=== PATIENT | female | born 1960 | race Caucasian/White ===

== ENCOUNTER 2020-10-11 00:50 | Inpatient (IN) | payer OTHER ==
[~2020-10-11] VITALS: Ht 154.9 cm; Wt 65.3 kg
[2020-10-11] VITALS (7 sets, daily range): BP systolic 83–128; BP diastolic 49–69
--- NOTE | ~2020-10-11 | HC ---
[facility] [place] [address] CONSULTATION Name: SARA BELTRAN Room #: 207-P ADM IN M.R.#: [id number] Admission: 10/11/20 Attend Phys: Juany Brownlee Discharge: Date of : 58 Report #: [id number] THIS REPORT FOR: cc: [facility] - Clinic physician unknown [facility] - Clinic physician unknown Luke Kilgore MD ~ DATE OF SERVICE: 10/11/2020 HISTORY OF PRESENT ILLNESS: This is a 60-year-old female patient who was seen by me for seizure. The history is very poorly defined. I cannot reach anybody to get good history in this patient. The patient is not able to provide any reliable history. I reviewed the patient's records. Some records are from 1998, which has been ___. The other records are limited in this patient. The patient says that he has seizures. He was found on the floor and he thought he may have had a seizure, but he cannot even confirm that. He says he has a seizure disorder. He does not have the list of his medication, but lists medication at home indicates that he is on Keppra 1000 mg b.i.d., in addition to another 1500 mg at night, so looks like he takes 1000 in the morning and 1500 at night. He is also on Tegretol, which looks like he takes 400 mg, 200 mg and 400 mg. He is also on lacosamide, which he takes 100 mg at 8:00, 100 mg at 4:00 and 200 mg at night. I do not know who is managing these medications. I have repeatedly asked him if he has a neurologist and he did not give me an answer. I am not sure he has mental capability to understand those questions and answer appropriately. REVIEW OF SYSTEMS: A 14-point review of system was carried out. 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 That may be even congenital because the patient indicates that his weakness is much more prominent on the left side as compared to the right side since . A 14-point review of system otherwise it is limited because of the patient's mental capabilities and nobody else is here to provide the history. Apparently, he has a humeral fracture. He had an episode of syncope. He has anger management problem. Apparently, he has been on lithium and valproic acid which is allergic to. He is on multiple seizure medication, but I am not sure about the history of seizures. He denies any chest pain, respiratory difficulty, GI symptoms. He does not have any constitutional, dermatological, hematological, psychiatric, throat symptom associated with present symptomatology. PAST MEDICAL HISTORY: Positive for cerebral palsy as well as seizure. SOCIAL HISTORY: The patient apparently lives with a roommate. PHYSICAL EXAMINATION: Pretty limited. He cannot tell me what month it is. He does have speech. His memory and fund of knowledge is very poor, but I think [facility] [address] [facility] [place] [address] CONSULTATION Name: SARA BELTRAN Room #: 207-P [facility] IN M.R.#: [id number] Admission: 10/11/20 Attend Phys: Juany Brownlee Discharge: Date of : 58 Report #: [id number] that is baseline. Cranial nerve examination 2-12 was attempted, very difficult to carry out, especially something like visual hutson and good facial nerve or examination. I cannot carry out visual field at all. Neuromuscular examinations indicate he moves all 4 extremities. He is weak on the left side. He is deformed on the left side and he does appear to be somewhat hyperreflexic on the left side. His tone looks increased there. I cannot tell about cerebellar sign in this patient. I could not look at the patient's fundus. Cardiac examination is unremarkable. No respiratory difficulty was noted. Does not have any edema, cyanosis or jaundice. He does not have any thyroid mass or carotid bruit. Blood pressure is 109/57, respirations 20, pulse is 88, and temperature is 98.5. LABORATORY DATA: White count is 8.3. His sodium is 129. IMPRESSION: Difficult to tell what he has because of such poor history. It is difficult to tell what he had in the past, but he is predisposed to have seizures. He is on multiple seizure medications. Question need to be addressed if he had another seizure. Whether he needs something like vagus nerve stimulator or any more intervention. Before that we will get an EEG done. He does not look like his home medication was started. I have asked the nurses to find out what medication he was on. He needs to be started on that, especially his anticonvulsant. He said he fell and hit his head. I will get a C-spine CT, as I can. He cannot provide any history. Presently, I would like him to start on the anticonvulsant, but as an outpatient. The question need to be addressed whether he need so many anticonvulsants or not. Thank you very much for this referral. By: [id number] Luke Kilgore MD /nt
--- NOTE | ~2020-10-11 | EEG ---
[facility] [place] [address] ELECTROENCEPHALOGRAM Name: SARA BELTRAN Room #: 207-P ADM IN M.R.#: [id number] Admission: 10/11/20 Attend Phys: Juany Tolbert Discharge: Date of : 58 Report #: [id number] THIS REPORT FOR: //name// DATE OF SERVICE: 10/11/2020 This patient's EEG was done to evaluate the patient for seizure activity. Background activity goes up to about 8-9 Hz and 30 microvolts. Photic stimulation is unremarkable. The patient went to sleep that is associated with bilateral slowing and vertex sharp waves. Throughout the record, no active epileptiform activity was noticed. IMPRESSION: This patient's EEG demonstrates sporadic sharper activity that may represent seizure, but the finding need strong clinical correlation because it is subtle. Thank you very much for this referral. By: [id number] Luke Kilgore MD /nt
[~2020-10-11 00:50] MED LIST: CARBAMAZEPINE200 M2 PO; CELEXA 20 MG TA20 M1 PO; CLONAZEPAM 0.50.5 M1 PO; CLONAZEPAM PO; IBUPROFEN 200200 M1 PO; KEPPRA 500 MG500 M1 PO; KEPPRA250 MG PO; LEXAPRO 10 MG T10 M1 PO; LEXAPRO5 MG; LISINOPRIL1 GM; LISINOPRIL10 MG PO; NORCO 5-325 TA1 EACH PO; RISPERIDONE 00.25 MG; RISPERIDONE 1 MG1 MG PO; VITAMIN D1000 UNI1 PO; ZOCOR 10 MG TAB10 MG; ZOCOR 20 MG TAB20 M1 PO
[2020-10-11 01:37] LABS: BASOPHILS 0.3 % (0.0-2.0); EOSINOPHILS 0.1 % (0.0-3.0); HEMATOCRIT 32.1 % (37.0-47.0); HEMOGLOBIN 10.7 gm/dL (12.0-15.0); LYMPHOCYTES 8.8 % (24.0-44.0); MCH 33.3 pg (26.0-34.0); MCHC 33.5 g/dL (28.0-37.0); MCV 99.6 fL (80.0-100.0); MONOCYTES 6.6 % (1.0-8.0); PLATELET COUNT 233 thou/uL (150-400); POLYS 84.2 % (36.0-66.0); RBC 3.22 mil/uL (4.20-5.00); RDW 12.6 % (10.5-14.5); WBC 8.3 thou/uL (4.0-11.0)
[2020-10-11 01:39] LABS: URINE BILIRUBIN NEGATIVE (Negative); URINE BLOOD NEGATIVE (Negative); URINE CLARITY CLEAR; URINE COLOR YELLOW; URINE GLUCOSE-RANDOM* NEGATIVE (Negative); URINE KETONES NEGATIVE (Negative); URINE LEUKOCYTES-REFLEX NEGATIVE (Negative); URINE NITRITE-REFLEX NEGATIVE (Negative); URINE PROTEIN (DIPSTICK) NEGATIVE (Negative); URINE SPECIFIC GRAVITY 1.015 (1.005-1.035); URINE UROBILINOGEN 0.2 E.U./dl (0.2-1.0)
[2020-10-11 01:40] LABS: ANION GAP 9 mmol/L (7-16); BUN 10 mg/dL (7-18); CALCIUM 8.3 mg/dL (8.5-10.1); CHLORIDE 94 mmol/L (98-107); CO2 26 mmol/L (21-32); CREATININE 0.7 mg/dL (0.6-1.0); GLUCOSE 157 mg/dL (74-106); POTASSIUM 3.8 mmol/L (3.5-5.1); SODIUM 129 mmol/L (136-145)
[2020-10-11 01:50] LABS: ALBUMIN 3.3 g/dL (3.4-5.0); SGOT 15 U/L (15-37); SGPT 15 U/L (14-59); TOTAL BILIRUBIN 0.4 mg/dL (0.2-1.0); TOTAL PROTEIN 6.2 g/dL (6.4-8.2); TROPONIN-I <0.06 ng/mL (<0.06)
[2020-10-11] MEDS ORDERED: LORATIDINE 10 M10 M1 PO (02:36)
[2020-10-11] MEDS ORDERED: TAMSULOSIN HCL0.4 MG PO (02:37)
[2020-10-11] MEDS ORDERED: LEVETIRACETAM500 M1 PO (02:39)
[2020-10-11] MEDS ORDERED: KEPPRA 500 MG500 MG PO (02:39)
[2020-10-11] MEDS ORDERED: LOSARTAN POTAS100 MG PO (02:57)
[2020-10-11] MEDS ORDERED: INDERAL LA 80 M80 M1 PO (02:57)
[2020-10-11] MEDS ORDERED: KLONOPIN1 MG PO (03:13)
[2020-10-11] MEDS ORDERED: NUEDEXTA 20-101 EACH PO (03:13)
[2020-10-11] MEDS ORDERED: MINIPRESS1 MG PO (03:14)
[2020-10-11] MEDS ORDERED: VITAMIN D325 G1 PO (03:14)
[2020-10-11] MEDS ORDERED: GLYCOPYRROLATE PO (03:14)
[2020-10-11] MEDS ORDERED: LIPITOR 40 MG T40 M1 PO (03:15)
[2020-10-11] MEDS ORDERED: TEGRETOL200 MG PO ×2 (03:15)
[2020-10-11] MEDS ORDERED: VIMPAT100 MG PO ×2 (03:16)
[2020-10-11] MEDS ORDERED: VIMPAT200 MG PO (03:16)
[2020-10-11] MEDS ORDERED: ALENDRONATE SOD70 MG PO (03:16)
[2020-10-11] MEDS ORDERED: SENNA8.6 MG PO (03:17)
[2020-10-11] MEDS ORDERED: DAILY VITE1 EACH PO (03:17)
[2020-10-11] MEDS ORDERED: LEVOTHYROXINE88 MC1 PO (03:18)
[2020-10-11] MEDS ORDERED: FUROSEMIDE 20 M20 MG PO (03:18)
[2020-10-11] MEDS ORDERED: FENOFIBRATE200 MG PO (03:18)
[2020-10-11] MEDS ORDERED: STOOL SOFTENER1 EAC2 PO (03:18)
[2020-10-11] MEDS ORDERED: MILK OF MA400 MG/5 M PO (03:19)
[2020-10-11] MEDS ORDERED: MUPIROCIN15 GM TOP (04:24)
[2020-10-11] MEDS ORDERED: HYDROCORTISONE30 G4 TOP (04:24)
[2020-10-11] MEDS ORDERED: CONSTULOSE10 GM/152 PO (06:20)
[2020-10-11] MEDS ORDERED: MELOXICAM15 MG PO (06:21)
[2020-10-11] MEDS ORDERED: ARTIFICIAL TEAR1510 OPHTHALMIC (06:22)
[2020-10-11] MEDS ORDERED: TRIPLE ANTIBIO1 EAC1 TOP (06:31)
[2020-10-11] MEDS ORDERED: TYLENOL325 MG PO (06:32)
--- NOTE | 2020-10-11 06:57 | EKG ---
[address] [place] [address] ELECTROCARDIOGRAM REPORT Name: SARA BELTRAN Room #: 207-P ADM IN M.R.#: [id number] Admission: 10/11/20 Attend Phys: Francois Perdomo MD Discharge: Date of : 58 Report #: [id number] [facility] ED Test Date: 2020-10-11 Test Time: 01:04:08 Pat Name: SARA BELTRAN Department: Room: 207 Gender: F Ammonia Print Operator: DRISSRancho : 1960 Requested By: Keanu Blevins Order Number: [id number] : Hung Hanks Measurements Intervals [place] Rate: 56 P: 55 WA: 199 QRS: 41 QRSD: 111 T: 76 QT: 456 QTc: 441 Interpretive Statements Sinus rhythm Probable left atrial enlargement Compared to ECG 05/18/2014 22:24:58 First degree AV block no longer present Electronically Signed On 10-11-2020 6:57:26 CDT by Hung Hanks [email or web address] <ELECTRONICALLY SIGNED> By: Hung Hanks MD, [facility] 10/11/20 0657 0104 3 Hung Hanks MD, FACC /EPI
[2020-10-11 09:05] LABS: CHOLESTEROL 210 mg/dL (<200); HDL CHOLESTEROL 87 mg/dL (>40); LDL CHOLESTEROL 115 mg/dL (<100); TC:HDL 2.4 Ratio (Not establshd); TRIGLYCERIDE 42 mg/dL (<150); VLDL 8 mg/dL (<40)
[2020-10-11 09:31] LABS: FOLIC ACID 4.5 ng/mL (8.6-58.9)
--- NOTE | 2020-10-11 11:20 | NUR ---
met with patient who admits post fall at [facility]. Patient reports she fell at [facility]. She uses a walker for ambulation. Left message with guardian Minday and left message at [facility] to discuss plan of care. Rec correct medication list from [facility]. casemgt following.
--- NOTE | 2020-10-11 11:39 | 2DMMODE ---
[facility] [address] [place] [address] 2 D/M-MODE ECHOCARDIOGRAM Name: SARA BELTRAN Room #: 207-P ADM IN M.R.#: [id number] Admission: 10/11/20 Attend Phys: Juany Brownlee Discharge: Date of : 58 Report #: [id number] THIS REPORT FOR: cc: [facility] - Clinic physician unknown [facility] - Clinic physician unknown Momo Wang MD [facility] ~ APPROVED REPORT Study performed: 10/11/2020 10:19:53 EXAM: Comprehensive 2D, Doppler, and color-flow Echocardiogram Patient Location: Bedside Room #: 207 Status: routine BSA: 1.62 HR: 54 bpm BP: 109/57 mmHg Rhythm: NSR Other Information Study Quality: Adequate Technically limited study due to upper torso harness. Indications Syncope. 2D Dimensions RVDd: 29.50 mm IVSd: 9.85 (7-11mm) LVOT Diam: 18.90 (18-24mm) LVDd: 43.06 mm PWd: 9.64 (7-11mm) LVDs: 22.86 (25-40mm) Left Atrium: 31.45 (27-40mm) Aortic Root: 31.57 mm Volumes Left Atrial Volume (Systole) Single Plane 4CH: 37.43 mL Single Plane 2CH: 36.36 mL LA ESV Index: 25.00 mL/m2 Aortic Valve AoV Peak Joe.: 1.60 m/s AO Peak Gr.: 10.52 mmHg LVOT Max P.12 mmHg [facility] [email or web address] [address] 2 D/M-MODE ECHOCARDIOGRAM Name: RUBYJUNGMelyssaMARITZA Room #: 207-[facility] IN M.R.#: [id number] Admission: 10/11/20 Attend Phys: Juany Hughes Discharge: Date of : 58 Report #: [id number] LVOT Max V: 1.13 m/s MOI Vmax: 1.98 cm2 Mitral Valve E/A Ratio: 0.8 MV Decel. Time: 261.41 ms MV E Max Joe.: 0.76 m/s MV A Joe.: 1.00 m/s MV PHT: 75.81 ms IVRT: 78.43 ms Pulmonary Valve PV Peak Joe.: 0.86 m/s PV Peak Gr.: 2.94 mmHg Tricuspid Valve TR Peak Joe.: 2.10 m/s RAP Estimate: 5.00 mmHg TR Peak Gr.: 18.00 mmHg PA Pressure: 23.00 mmHg Left Ventricle The left ventricle is normal size. There is normal LV segmental wall motion. There is normal left ventricular wall thickness. Left ventricular systolic function is normal. LVEF is 60-65%. Mild diastolic dysfunction Right Ventricle The right ventricle is normal size. The right ventricular systolic function is normal. Atria The left atrium size is normal. The right atrium size is normal. Aortic Valve The aortic valve is trileaflet, moderately calcified. No aortic regurgitation is present. There is no aortic valvular stenosis. Mitral Valve Mild mitral annular calcification. There is no mitral valve regurgitation noted. No evidence of mitral valve stenosis. Tricuspid Valve The tricuspid valve is normal in structure. Trace tricuspid regurgitation. Estimated PAP is 20-25mmHg. [facility] [address] [address] 2 D/M-MODE ECHOCARDIOGRAM Name: SARA BELTRAN Room #: [facility]- ADM IN M.R.#: [id number] Admission: 10/11/20 Attend Phys: Juany Hughes Discharge: Date of : 58 Report #: [id number] Pulmonic Valve The pulmonary valve is normal in structure. Mild pulmonic regurgitation. Great Vessels The aortic root is normal in size. The ascending aorta is normal in size. IVC is normal in size and collapses >50% with inspiration. Pericardium There is no pericardial effusion. <Conclusion> Left ventricular systolic function is normal. There is normal LV segmental wall motion. LVEF is 60-65%. Mild diastolic dysfunction The aortic valve is trileaflet, moderately calcified. No aortic valvular stenosis. Mild mitral annular calcification. No mitral valve regurgitation. Trace tricuspid regurgitation. Estimated pulmonary artery pressure of 20-25mmHg. There is no pericardial effusion. <ELECTRONICALLY SIGNED> By: Momo Wang MD, [facility] 10/11/20 6701 [id number] 113 Momo Wang MD, [facility] /INF
[2020-10-11] MEDS ORDERED: ZOCOR 20 MG TAB20 M1 PO (12:18)
[2020-10-11] MEDS ORDERED: CLONAZEPAM 0.50.5 M1 PO (12:22)
[2020-10-11] MEDS ORDERED: RISPERDAL2 MG PO (12:30)
[2020-10-11] MEDS ORDERED: BENZTROPINE MES1 MG PO (12:31)
[2020-10-11] MEDS ORDERED: LEXAPRO 10 MG T10 M1 PO (12:32)
[2020-10-11] MEDS ORDERED: VITAMIN B-121000 MC2 SUBLING (12:33)
--- NOTE | 2020-10-11 16:33 | NUR ---
FAXED CLINICAL UPDATE TO [facility] WHERE PT RESIDES RECEIVED CONFIRMATION.
--- NOTE | 2020-10-11 18:44 | NUR ---
TO UNIT FROM Arabella PATEL THIS A.M. ORIENTED TO UNIT. SR PER TELE. RIGHT ARM IN SLING; LEFT ARM CONTRACTED. FALL PRECAUTIONS IN PLACE.
[2020-10-12 04:00] VITALS: BP 124/77
[2020-10-12 05:09] LABS: CALCIUM 7.8 mg/dL (8.5-10.1); CREATININE 0.5 mg/dL (0.6-1.0); MAGNESIUM 1.8 mg/dL (1.8-2.4); POTASSIUM 3.8 mmol/L (3.5-5.1)
[2020-10-12 05:31] LABS: BASOPHILS 0.8 % (0.0-2.0); EOSINOPHILS 1.9 % (0.0-3.0); HEMATOCRIT 26.6 % (37.0-47.0); HEMOGLOBIN 9.1 gm/dL (12.0-15.0); LYMPHOCYTES 29.3 % (24.0-44.0); MCH 34.1 pg (26.0-34.0); MCHC 34.1 g/dL (28.0-37.0); PLATELET COUNT 212 thou/uL (150-400); RBC 2.66 mil/uL (4.20-5.00); RDW 12.9 % (10.5-14.5); WBC 5.3 thou/uL (4.0-11.0)
--- NOTE | 2020-10-12 06:37 | NUR ---
RECEIVED OT EVAL AND TREAT ORDERS. PER CHART REVIEW, PT. HAS R HUMERUS FRACTURE POST FALL. HAS ORTHOPEDIC SURGERY CONSULT IN. WILL WAIT TO EVALUATE UNTIL CONSULT IS DONE. WILL CHECK BACK LATER TODAY.
[2020-10-12 07:15] VITALS: BP 139/67
--- NOTE | 2020-10-12 08:04 | NUR ---
ASSESSMENTS CHARTED, MEDS CHARTED GIVEN. PT RESTING IN BED WITH RIGHT ARM IMMOBILIZER IN PLACE DURING SHIFT. NPO FOR POSSIBLE PROCEDURE TODAY. USING BEDPAN DUE TO IMMOBILIZER ON RIGHT ARM AND LEFT ARM CONTRACTED. PATIENT LIVES IN A [facility]. FALL PRECAUTIONS IN PLACE DURING SHIFT.
[2020-10-12 08:43] LABS: % SATURATION 32 % (20-39); IRON 48 ug/dL (50-170); TIBC 148 ug/dL (250-450)
--- NOTE | 2020-10-12 10:17 | NUR ---
EDU PATIENTS AUTHORIZED CONTACT CALLED FOR UPDATE. PROVIDED INFORMATION FOR KIRSTIN CHENG WHO IS PATIENTS PRODUCTION SUPERVISOR TRAINEE AT [facility]. AUTHORIZED FOR UPDATES TO BE GIVEN TO LAT[facility]. SHE WAS MADE THE DESIGNATED VISITOR. PATIENT WAITING FOR OTHRO DOCTOR TO ROUND FAR PLAN OF CARE.
[2020-10-12 11:15] VITALS: BP 139/67
[2020-10-12 15:30] VITALS: BP 148/68
--- NOTE | 2020-10-12 16:34 | NUR ---
SPOKE WITH DR. FRANCO. OKAY FOR PATIENT TO HAVE DIET THIS EVENING AND THEN MAKE NPO AT MIDNIGHT FOR POTENTIAL SURGICAL INTERVENTION TOMORROW.
[2020-10-12 20:15] VITALS: BP 123/58
[2020-10-13 04:45] VITALS: BP 124/89
[2020-10-13 05:42] LABS: HEMATOCRIT 27.5 % (37.0-47.0); HEMOGLOBIN 9.2 gm/dL (12.0-15.0); MCH 33.7 pg (26.0-34.0); MCHC 33.5 g/dL (28.0-37.0); MCV 100.6 fL (80.0-100.0); RBC 2.74 mil/uL (4.20-5.00)
[2020-10-13 07:46] VITALS: BP 116/66
--- NOTE | 2020-10-13 08:30 | NUR ---
chart review, possible ortho surgery today. cm visited with pt at bedside, cm cont to wear face mask and shield during visit. she pleasant, soft spoken, answered question with verbal responses. call light in reach end of visit. will possible need rehab before going back to longterm. will cont following as needed for dc needs.
[2020-10-13 11:53] VITALS: BP 134/57
--- NOTE | 2020-10-13 13:06 | NUR ---
ORDERS RECEIVED, CHART REVIEWED. PER ORTHO CONSULT, PT TO HAVE ORIF OF R HUMERAL FX TODAY, 10/13. WILL NEED NEW ORDERS TO INITIATE OT EVAL POST-OP.
--- NOTE | 2020-10-13 19:23 | NUR ---
ASSUMED CARE OF PT AT SHIFT CHANGE. ASSESSMENTS CHARTED. MEDS GIVEN PER SEP. PT A&OX2-3. C/O PAIN, BUT DECLINED PAIN MEDS. PT NPO. TAKEN TO OR AT 1330 FOR REPAIR OF R HUMERUS. RETURNED TO UNIT AT 1820. DINNER TRAY WAS DELIVERED. PT CAREGIVER FROM [facility] WAS AT BEDSIDE FEEDING PT. REPORTED OFF TO NIGHT NURSE.
[2020-10-13 20:15] VITALS: BP 168/65
[2020-10-13 23:08] VITALS: BP 146/75
--- NOTE | 2020-10-14 04:08 | NUR ---
RESTED QUIETLY MOST OF SHIFT. ATE DINNER WELL WITH ASSISTANCE. PAIN MEDICATION GIVEN NEEDED WITH NOTED RELIEF. ICE TO RIGHT ARM NEEDED. ASSITS TO TURN FOR BEDPAN NEEDED. REMAINS ORIENTED TO PERSON, PLACE AND SITUATION. WORKING ON GOALS AND PLAN OF CARE FOR NOC. ASSIT TO REPOSITION NEEDED. CONTINUE TO ASSES CLOSELY.
[2020-10-14 04:45] VITALS: BP 143/60
[2020-10-14 05:03] LABS: HEMATOCRIT 25.3 % (37.0-47.0); HEMOGLOBIN 8.6 gm/dL (12.0-15.0); MCH 33.9 pg (26.0-34.0); MCV 99.7 fL (80.0-100.0); RBC 2.54 mil/uL (4.20-5.00); RDW 12.8 % (10.5-14.5)
[2020-10-14 08:00] VITALS: BP 121/64
--- NOTE | 2020-10-14 08:40 | NUR ---
discussed with hospitalist, possible dc today or tomorrow and going to require skilled rehab before going back to [facility]. cm visited with pt at bedside, she requested i talk with sterling and [facility] " don't know where to go"/mei. cm called [facility]ling, unable to visit and will call cm back.
[2020-10-14 12:00] VITALS: BP 130/65
--- NOTE | 2020-10-14 14:28 | NUR ---
FAXED REFERRAL WITH NEGATIVE COVID RESULT (10/12/20) TO [facility] AND [facility]. SPOKE TO MARKEL/TAYO OF [facility] THAT PATIENT'S PARENTS RESIDE THERE. MARKEL STATED THEY WEREN'T ACCEPTING ANY NEW PATIENT'S WITH [employer] INSURANCE BUT WOULD CONSIDER AND GET BACK TO ME WITH DETERMINATION. PATIENT'S GOAL IS TO RETURN TO [facility] AFTER REHAB IN A SKILLED FACILITY. WILL CONFIRM FACILITIES RECEIVED AND BED AVAILABILIY. [facility] P [phone]; FAX [phone] [facility] P [phone]; FAX [phone] [facility] FAX [phone]
[2020-10-14 16:00] VITALS: BP 122/70
[2020-10-14 20:00] VITALS: BP 131/72
[2020-10-15] VITALS (8 sets, daily range): BP systolic 106–146; BP diastolic 56–75
[2020-10-15 03:21] LABS: HEMATOCRIT 23.4 % (37.0-47.0); MCH 34.1 pg (26.0-34.0); MCV 100.3 fL (80.0-100.0); RBC 2.33 mil/uL (4.20-5.00); RDW 13.1 % (10.5-14.5); WBC 7.3 thou/uL (4.0-11.0)
--- NOTE | 2020-10-15 03:40 | NUR ---
PT IS ALERT AND ORIENTED X4. COMPLAINS OF RIGHT SHOULDER PAIN. PAIN MEDS GIVEN FOR COMFORT. SEE MAR FOR TIME OF ADMINISTRATION. RIGHT ARM IN A SLING . DRESSING DRY AND INTACT. VOIDS PER BEDPAN. ABDOMEN IS ROUND . BOWEL SOUNDS ACTIVE X4. CALL LIGHT WITHIN REACH IF NEEDS ASSISTANCE PER NURSING STAFF. SLEEPING AT THIS TIME.
--- NOTE | 2020-10-15 18:40 | NUR ---
PT CARE ASSUMED AT 0700. ASSESSMENTS CHARTED. MEDICATIONS CHARTED. AARON IV. SINUS RHYTHM. BEDPAN; OCCULT STOOL NEEDED. RT ARM IN A SLING. ACHS; FEEDER.
--- NOTE | 2020-10-16 04:17 | NUR ---
PT IS ALERT AND ORIENTED X4. LUNGS ARE CLEAR. BOWEL SOUNDS ACTIVE X4. RIGHT ARM IS IN A SLING. PAIN MEDS GIVEN SEE MAR FOR TIME OF ADMINISTRATION. PT SLEEPING. VOIDS PER BEDPAN.NO CONCERNS OR ISSUES NOTED CALL LIGHT WITHIN REACH IF NEEDS ASSISTANCE FROM NURSING STAFF.
[2020-10-16 04:54] VITALS: BP 112/77
[2020-10-16 07:34] VITALS: BP 120/74
[2020-10-16 11:04] VITALS: BP 118/66
[2020-10-16 15:08] VITALS: BP 143/77
--- NOTE | 2020-10-16 15:18 | NUR ---
ALERT AND ORIENTED. MENTALLY CHALLENGED. MAKES NEEDS KNOWN. MEDICATED FOR RIGHT ARM PAIN ORDERED. BACK AND FORTH FROM THE BED TO THE CHAIR. VOIDING PER BEDPAN, ONE INCONTINENCE. NEED STOOL FOR OCCULT BLOOD. SR PER TELE. FALL PRECAUTIONS IN PLACE.
[2020-10-16 20:15] VITALS: BP 115/91
[2020-10-17] VITALS (7 sets, daily range): BP systolic 96–173; BP diastolic 53–89
--- NOTE | 2020-10-17 08:00 | NUR ---
pt alert to self, uses call light appropriatly for assist, mentally challenged and forgetful, prn pain meds given as needed for r arm pain, vss, using bedpan to void, needed frequent repositioning, will con't to monitor per ppoc.
--- NOTE | 2020-10-17 12:58 | NUR ---
spoke with [facility] they are in process of auth fpr post acute care.
--- NOTE | 2020-10-17 15:07 | NUR ---
FAXED CLINICAL UPDATE TO [facility] TO SUBMIT FOR AUTH RECEIVED CONFIRMATION.
--- NOTE | 2020-10-17 15:12 | NUR ---
PT ALERT AND ORIENTED TO SELF. VSS. PRN PAIN MED GIVEN WITH PARTIAL RELIEF. UP IN THE CHAIR THIS SHIFT. NO CONCERNS AT THIS TIME. PT PROGRESSING WELL TOWARDS DISCHARGE GOAL.
--- NOTE | 2020-10-17 16:54 | O ---
[address] [address] OPERATIVE REPORT Name: SARA BELTRAN Room #: 207-P ADM IN M.R.#: [id number] Admission: 10/11/20 Attend Phys: Juany Brownlee Discharge: Date of : 58 Report #: [id number] THIS REPORT FOR: cc: [facility] - [facility] physician unknown [facility] - Clinic physician unknown Young Bustos MD ~ DATE OF SERVICE: 10/13/2020 SERVICE: Orthopedics. FACILITY: [facility]. SURGEON: Young Bustos MD CELERY PACKER: Bina Phillips NP INDICATION FOR CELERY PACKER: Extremity positioning, suture management, assistance with provisional and definitive fixation exposure and closure. PREOPERATIVE DIAGNOSES: 1. Status post fall. 2. Comminuted displaced 3-part right proximal humerus fracture. POSTOPERATIVE DIAGNOSES: 1. Status post fall. 2. Comminuted displaced 3-part right proximal humerus fracture. PROCEDURES: 1. Open reduction and internal fixation, right, 3-part proximal humerus fracture. 2. Open biceps tenodesis, right shoulder. COMPLICATIONS: None. DRAINS: None. SPECIMENS: None. ANESTHESIA: General. ESTIMATED BLOOD LOSS: 30 mL. FINDINGS: 1. Displaced malangulated fracture fixed with [employer]s 3-hole proximal locking plate. [address] [address] OPERATIVE REPORT Name: SARA BELTRAN Room #: 207-P [facility] IN [facility]#: [id number] Admission: 10/11/20 Attend Phys: Juany Brownlee Discharge: Date of : 58 Report #: [id number] 2. Involvement of the biceps tendon, necessitated biceps tenodesis. HISTORY: The patient rolls a 60-year-old right-hand dominant female who sustained a fall and was admitted to the hospital with a displaced proximal humerus fracture. Based on her overall health condition with her left side being contracted, she is very dependent on her right arm and she also uses her arm in order to mobilize safely with a walker. The fracture pattern was such that she was indicated for surgical treatment after we considered all risks, benefits, alternatives and indications. I discussed this with her as well as her guardian. We together elected to proceed with surgery. Risks, benefits, alternatives, and indications were discussed. Risks include but not limited to pain, bleeding, infection, injury nerves or blood vessels, malunion, nonunion, need for further surgery as well as complications related to anesthesia. Despite the risks, they wished to proceed. PROCEDURE IN DETAIL: After right upper extremity was correctly identified as the operative extremity, the patient was taken to the operating room where general anesthesia was induced without complication. She was padded appropriately. Prophylactic antibiotics were administered at appropriate time. She was seated in the beach chair position with the right side exposed. Right upper extremity was then prepped and draped in standard sterile fashion. Timeout procedure performed. Standard deltopectoral approach was made to the right humerus and then the clavipectoral fascia was identified and was incised. The coracobrachialis was retracted medially. The deltoid was retracted and the subdeltoid adhesions were released. There was bursitis present. The rotator cuff was still fixed to the greater tuberosity. The subscapularis was visualized, then a traction stitch was placed here. The biggest issue was that the greater tuberosity was avulsed and displaced posteriorly and then the humeral head was rotated posteriorly about 100 degrees off axis, so she was articulating her glenoid essentially with the anterior aspect of the humerus. So, we opened up the fracture, evacuated the hematoma; there was a cavity present within the bone and ultimately used 5 mL of demineralized bone matrix putty to place in this defect. Manipulation was performed and then I was able to place 2 traction stitches in the posterior rotator cuff, which allowed good advancement of the posterior cuff and then we proceeded with a provisional fixation. I selected a 3-hole plate. I did do a slight release of the deltoid insertion distally. 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 This allowed for much better [address] [address] OPERATIVE REPORT Name: RUBYSARA Room #: 207-P [facility] IN M.R.#: [id number] Admission: 10/11/20 Attend Phys: Juany Brownlee Discharge: Date of : 58 Report #: [id number] visualization and improved mobility and allowed the plate to actually sit better. She has a slightly atypical anatomy of her greater tuberosity adjacent to the bicipital groove. The plate again was provisionally fixed to the shaft. We brought x-ray in and checked on several planes of x-ray and I was happy with the position. I took care to ensure that the plate was not too proximally and then used nonlocking screws to compress the plate to the shaft distally and then we fixed the head and tuberosity components back to the plate shaft construct. I passed the sutures from the rotator cuff through the plate and with x-ray checked the reduction by pulling the sutures and then used a Frausto to elevate the humeral head to eliminate any varus malpositioning. The posterior cuff sutures were tied and this provided good approximation of the posterior cuff and greater tuberosity adjacent to the plate and then the demineralized bone matrix was injected into the metaphyseal cavity at the head and neck junction and then I pulled the subscapularis lesser tuberosity segment back down over the front and this then allowed for a near anatomic reduction and good alignment. The sutures were tied as well. We proceeded with screw fixation in the proximal segment. We fixed the initial first 3 screws and then brought C-arm in to assess, make sure that the reduction and alignment looked appropriate and it did, so we placed the final screws into position, used the C-arm throughout. The shoulder was then evaluated under live C-arm with the approach withdrawal technique to confirm that all the screws were in fact within the humerus and there was nothing penetrating the articular surface of the posterior aspect of the humerus. Final x-rays were taken. The wound was copiously irrigated. I then used a #1 Ethibond suture with 2 [id number] sutures to tenodese the biceps tendon to the upper border of the pectoralis and then resected the tendon stump. Wound was again irrigated. The deltopectoral layer was closed over a gram of vancomycin powder with 0 Vicryl suture in [id number]-su-fstba fashion. The skin was closed with 2-0 Vicryl followed by running subcuticular 3-0 Monocryl and Dermabond. Sterile dressing was applied. The patient was awakened from anesthesia and taken to recovery room in stable condition. Postoperative protocol will be for nonweightbearing for 6 weeks. We will start range of motion 0-30 degrees and forward flexion 0-90 degrees. These will be active assist range of motion and she will begin pendulums and then hand, wrist and elbow early range of motion with no restrictions in that category. <ELECTRONICALLY SIGNED> By: Young Bustos MD 10/17/20 1654 [id number] Young Bustos MD /nt
--- NOTE | 2020-10-18 02:46 | NUR ---
UP IN CHAIR AT START OF SHIFT AND ASSISTED BACK TO BED WITH ASSIST OF ONE. TURNS SELF IN BED. ASSISTS TO VOID NEEDE. WORKING ON GOALS AND PLAN OF CARE FOR NOC. PAIN MEDICATION GIVEN NEEDED WITH NOTED RELIEF. CALLS OUT APPROPRIATLY. CONTINUE TO ASSES CLOSELY.
[2020-10-18 04:45] VITALS: BP 133/82
[2020-10-18 07:47] VITALS: BP 127/68
--- NOTE | 2020-10-18 09:30 | NUR ---
PATIENT ALERT AND ORIENTED. AMBULATED TO CHAIR THIS AM. SAT UP FOR BREAKFAST. NEEDS ASSIST WITH FEEDING. ATE A GOOD BREAKFAST. CURRENTLY WORKING WITH THERPAY. NEEDS DISCHARGE TO SKILLED FACILITY FOR REHAB PURPOSES. ALL FALL PRECAUTIONS IN PLACE.
[2020-10-18 11:23] VITALS: BP 127/68
[2020-10-18 11:27] VITALS: BP 128/69
--- NOTE | 2020-10-18 14:10 | NUR ---
Nutrition: pt admitted with right humerus fracture, S/P ORIF. Seen due to LOS. Pt eating 70-100% of meals on regular diet. On folic acid supplementation for deficiency. Weight up 4# from initial admit weight. Plan D/C to SNF. Low risk.
--- NOTE | 2020-10-18 14:56 | NUR ---
Discussion of patient at team rounds. Phys reports can likely dc home with HH care. Sp with Cha RN [phone] and faxed clinical update. She reviewed and reports patient can return to [facility] home. No preference for home health agency. They do not have staff today to accomadate patient plan dc in am. Sp with Neli, Guardian of patient who is agreeable to plan and no preference for home health agency. Verified address. PCP Dr Krishan Kirk. Ph number for home health to call is [facility] [phone].
[2020-10-18 15:44] VITALS: BP 114/68
--- NOTE | 2020-10-18 16:28 | NUR ---
FAXED REFERRAL TO [facility] HH RECEIVED CONFIRMATION SPOKE WITH ROSEANN IN INTAKE THEY HAVE NOT REVIEWED REFERRAL YET. PT TO DC TOMORROW 10/19.
[2020-10-18 19:55] VITALS: BP 121/66
--- NOTE | 2020-10-19 03:03 | NUR ---
SLEPT MOST OF SHIFT. RESTING QUIETLY WITHOUT PRESENT COMPLAINTS. WORKING ON GOALS AND PLAN OF CARE FOR NOC. PROGRESSING SLOWLY TOWARDS DISCHARGE TO HALF-WAY TODAY. PAIN MEDICATION NEEDED WITH NOTED RELIEF. CONTINUE TO ASSES CLOSELY.
[2020-10-19 04:45] VITALS: BP 131/62
[2020-10-19 07:16] VITALS: BP 125/75
[2020-10-19] MEDS ORDERED: RISPERDAL2 MG PO (10:38)
[2020-10-19 10:51] VITALS: BP 127/68
[2020-10-19 11:00] VITALS: BP 117/58
--- NOTE | 2020-10-19 11:48 | NUR ---
PATIENT UP TO CHAIR THIS AM. STATES SHE IS FEELING GOOD AND EXCITED TO GO HOME TO SEE HER ROOMMATES. RIGHT ARM IN SLING. WORKED WITH THERAPY. WAITING FOR DISCHARGE TO FINALIZE AND TRANSPORT ARRANGED TO [facility].
[2020-10-19] MEDS ORDERED: BENZTROPINE MES1 MG PO (11:52)
[2020-10-19] MEDS ORDERED: LEVETIRACETAM500 M1 PO (11:52)
[2020-10-19] MEDS ORDERED: MILK OF MA400 MG/5 M PO (11:52)
[2020-10-19] MEDS ORDERED: KEPPRA 500 MG500 MG PO (11:52)
[2020-10-19] MEDS ORDERED: STOOL SOFTENER1 EAC2 PO (11:52)
[2020-10-19] MEDS ORDERED: SENNA8.6 MG PO (11:52)
[2020-10-19] MEDS ORDERED: VITAMIN D325 G1 PO (11:52)
[2020-10-19] MEDS ORDERED: VITAMIN B-121000 MC2 SUBLING (11:52)
[2020-10-19] MEDS ORDERED: DAILY VITE1 EACH PO (11:52)
[2020-10-19] MEDS ORDERED: TYLENOL325 MG PO (11:52)
[2020-10-19] MEDS ORDERED: TEGRETOL200 MG PO (11:52)
[2020-10-19] MEDS ORDERED: LEXAPRO 10 MG T10 M1 PO (11:52)
[2020-10-19] MEDS ORDERED: ARTIFICIAL TEAR1510 OPHTHALMIC (11:52)
[2020-10-19] MEDS ORDERED: ZOCOR 20 MG TAB20 M1 PO (11:52)
[2020-10-19 13:57] VITALS: BP 127/68
[2020-10-19 14:15] VITALS: BP 127/68
--- NOTE | 2020-10-19 14:51 | NUR ---
Spoke with Deana at [facility] she rec ordrers. RN called report. Chart copied. CM and RN sp with Neli. Grp home to transport home. HH arranged with Gillian no further needs.
--- NOTE | 2020-10-19 15:01 | NUR ---
FAXED DC ORDERS/SUMMARY TO [facility] AND [facility] RECEIVED CONFIRMATION ON BOTH.
== END 2020-10-19 15:56 | disposition home health service (06) | DRG 493 ==
LOC: ER 00:50 → 2N 06:07 → EROBS 06:07 → 2N 06:37
PROVIDERS: Emergency Medicine; Internal Medicine; Nurse Practitioner; Orthopaedic Surgery Sports Medicine; ADMIT Hospitalist; ATTEND Hospitalist
PROC: 0PSC04Z Reposition Right Humeral Head with Internal Fixation Device, Open Approach (ICD-10-PCS; principal; 2020-10-13)
PROC: 0LS30ZZ Reposition Right Upper Arm Tendon, Open Approach (ICD-10-PCS; principal; 2020-10-13)
DX: S42.211A Unspecified displaced fracture of surgical neck of right humerus, initial encounter for closed fracture (principal); E87.1 Hypo-osmolality and hyponatremia; I95.1 Orthostatic hypotension; G40.909 Epilepsy, unspecified, not intractable, without status epilepticus; F32.9 Major depressive disorder, single episode, unspecified; I10 Essential (primary) hypertension; F41.9 Anxiety disorder, unspecified; I34.0 Nonrheumatic mitral (valve) insufficiency; F34.1 Dysthymic disorder; G89.29 Other chronic pain; M25.552 Pain in left hip; G80.9 Cerebral palsy, unspecified; Z88.8 Allergy status to other drugs, medicaments and biological substances; Z79.899 Other long term (current) drug therapy; W18.39XA Other fall on same level, initial encounter; Y93.89 Activity, other specified; Y92.89 Other specified places as the place of occurrence of the external cause; Y99.8 Other external cause status; Z20.822 Contact with and (suspected) exposure to COVID-19; E87.8 Other disorders of electrolyte and fluid balance, not elsewhere classified
CPT/HCPCS: 10081; 50010; 50101; 50172; 50341; 50386; 50403; 50568; 50697; 50733; 51014; 52258; 54118; 56527; 56528; 56530; 56667; 57103; 62110; 62900; 70005

== ENCOUNTER → 2020-12-13 | Outpatient (CLI) | payer OTHER ==
[~2020-12-13] MED LIST changes: +ALENDRONATE SOD70 MG PO; +ARTIFICIAL TEAR1510 OPHTHALMIC; +BENZTROPINE MES1 MG PO; +CONSTULOSE10 GM/152 PO; +DAILY VITE1 EACH PO; +FENOFIBRATE200 MG PO; +FUROSEMIDE 20 M20 MG PO; +GLYCOPYRROLATE PO; +HYDROCORTISONE30 G4 TOP; +INDERAL LA 80 M80 M1 PO; +KEPPRA 500 MG500 MG PO; +KLONOPIN1 MG PO; +LEVETIRACETAM500 M1 PO; +LEVOTHYROXINE88 MC1 PO; +LIPITOR 40 MG T40 M1 PO; +LORATIDINE 10 M10 M1 PO; +LOSARTAN POTAS100 MG PO; +MELOXICAM15 MG PO; +MILK OF MA400 MG/5 M PO; +MINIPRESS1 MG PO; +MUPIROCIN15 GM TOP; +NUEDEXTA 20-101 EACH PO; +RISPERDAL2 MG PO; +SENNA8.6 MG PO; +STOOL SOFTENER1 EAC2 PO; +TAMSULOSIN HCL0.4 MG PO; +TEGRETOL200 MG PO; +TRIPLE ANTIBIO1 EAC1 TOP; +TYLENOL325 MG PO; +VIMPAT100 MG PO; +VIMPAT200 MG PO; +VITAMIN B-121000 MC2 SUBLING; +VITAMIN D325 G1 PO
== END ==
LOC: CAT 10:14
PROVIDERS: ATTEND Orthopaedic Surgery Sports Medicine
DX: S42.291D Other displaced fracture of upper end of right humerus, subsequent encounter for fracture with routine healing (principal); M19.011 Primary osteoarthritis, right shoulder; M77.8 Other enthesopathies, not elsewhere classified; X58.XXXD Exposure to other specified factors, subsequent encounter

== ENCOUNTER 2021-01-04 06:11 | Observation (INO) | payer OTHER ==
[~2021-01-04] VITALS: Ht 157.5 cm; Wt 61.6 kg
[~2021-01-04 06:11] MED LIST changes: +ALMACONE-2 LIQ355 ML PO; +IBUPROFEN200 M1 PO; +LEVETIRACETAM250 MG PO; +NORCO7.5 PO; +REGULOID426 GM PO; +SENNA LAXATIVE8.6 MG PO; +SLEEP AID50 MG PO
[2021-01-04 09:10] VITALS: BP 176/82
[2021-01-04 11:37] VITALS: BP 135/62
--- NOTE | 2021-01-04 12:19 | O ---
[address] [address] OPERATIVE REPORT Name: SARA BELTRAN [id number]: 01/04/21 Attend Phys: Young Bustos MD Discharge: Date of : 58 Report #: [id number] THIS REPORT FOR: cc: FAM - Family physician unknown FAM - Family physician unknown Young Bustos MD ~ DOC #: [id number] Young Bustos MD DATE OF SERVICE: 01/04/2021 SERVICE: Orthopedics. FACILITY: [facility]. SURGEON: Young Bustos MD TERMINAL WORKER: Bina Phillips NP INDICATIONS FOR TERMINAL WORKER: Extremity positioning, assistance with exposure and closure. PREOPERATIVE DIAGNOSES: 1. Right shoulder stiffness. 2. Status post open reduction and internal fixation right, comminuted proximal humerus fracture. 3. Osteoporosis. 4. Prominent hardware, right humerus. POSTOPERATIVE DIAGNOSES: 1. Right shoulder stiffness. 2. Status post open reduction and internal fixation right, comminuted proximal humerus fracture. 3. Osteoporosis. 4. Prominent hardware, right humerus. PROCEDURES PERFORMED: 1. Manipulation under anesthesia with open lysis of adhesions, right shoulder. 2. Open hardware removal, right shoulder. COMPLICATIONS: None. DRAINS: None. SPECIMENS: None. ANESTHESIA: General. [address] [address] OPERATIVE REPORT Name: SARA BELTRAN Room #: 447-P [facility] Tawanna Ely#: [id number] Admission: 01/04/21 Attend Phys: Young Bustos MD Discharge: Date of : 58 Report #: [id number] FINDINGS: 1. Improved range of motion through all directions following manipulation as well as subdeltoid and subacromial lysis of adhesions. 2. Hardware removal of prominent screws x3. 3. Visual and radiographic evidence of fracture union. HISTORY: The patient is a 60-year-old female with medical issues including cerebral palsy and developmental delay who has contractures on her left side and is largely right-hand dominant and dependent. She fell and sustained a proximal humerus fracture earlier in 2020 and underwent open reduction and internal fixation of the fracture. She has some osteopenia/osteoporosis at baseline and as the fracture healed it settled and the screws which were intraosseous initially did have some penetration of the humeral head as the fracture settled. She had a CT scan confirming radiographic union of the fracture. We made plans for hardware removal of the at risk screws as well as manipulation under anesthesia and she had developed significant amount of stiffness in the shoulder and this is her primary arm. Risks, benefits, alternatives and indications for surgery discussed with her as well as with her legal guardians and they gave full informed consent and wished to move forward. Risks include but not limited to pain, bleeding, infection, injuring nerves or blood vessels, persistent stiffness, need for further surgery as well as complications related to anesthesia. Despite the risks, she wished to proceed. DESCRIPTION OF PROCEDURE: After right upper extremity was correctly identified in the preoperative holding area as the operative extremity, the patient was taken to the operating room. General anesthesia was induced without complication. She was padded appropriately, seated in the beach chair position. Prophylactic antibiotics were administered at the appropriate time. Right arm was then prepped and draped in standard sterile fashion. A timeout procedure was performed. We proceeded with the manipulation portion of the procedure before prepping and draping. The arm was taken through gentle and then more stressed range of motion with forward flexion, lateral abduction, external rotation and 0 degrees of abduction and then abduction, external rotation and maximal abduction. Internal rotation and adduction were then performed. Subsequently, she had improvement in her range of motion. She was noted to have some release of subacromial adhesions with the procedure. Right arm was then prepped and draped and a second timeout procedure was performed. The previous scar was used and incision was made utilizing approximately 2/3 of that previous incision. Full thickness skin flaps were developed. Hemostasis was achieved on the way down. The deltopectoral interval had scarred in significantly and the deltoid was very tethered down both at the deltopectoral interval as well as over the plate and over the humerus. Dissection was taken down to the humeral plate and then we used x-ray to confirm [facility] [address] [place] [address] OPERATIVE REPORT Name: SARA BELTRAN Room #: 447-P [facility] Tawanna Ely#: [id number] Admission: 01/04/21 Attend Phys: Young Bustos MD Discharge: Date of : 58 Report #: [id number] the appropriate screws. CT scan indicated that the 3 screws should be removed. So, we removed the distal posterior screw first. After x-ray confirmed it was the appropriate screw. The screw head had been cleaned and the 2 proximal screws were exposed and removed in similar fashion. A Frausto was used to release the subdeltoid adhesions along the plate and humerus and then the Frausto was advanced in the subacromial space, releasing these adhesions as well. The deltoid was much more supple and mobile at this point and the wound was then thoroughly irrigated. The muscle layer was closed with 0 Vicryl suture in tqpwsw-ec-peudj fashion over a gram of vancomycin powder. The skin was closed with 2-0 Vicryl followed by running subcuticular Monocryl and Dermabond. Sterile dressing was applied. The patient was awakened from anesthesia and taken to recovery room in stable condition. No complications. All counts were recorded as correct. She will begin formal outpatient physical therapy with weightbearing as tolerated and range of motion as tolerated without any formal restrictions. Young Bustos MD MPM/SAT <ELECTRONICALLY SIGNED> By: Young Bustos MD 01/04/21 1219 0900 1047 Young Bustos MD /nt
[2021-01-04 16:15] VITALS: BP 139/76
--- NOTE | 2021-01-04 19:10 | NUR ---
Pt. came to [facility] [address] from OR. She was on room air. IV in right hand. and left foot. DCed IV in left foot so pt. could wear grippy socks when ambulating to the restroom. Gave IV antibiotics. Pt did not request any pain medication, Aquacell drsg on right shoulder is C/D/I. Pt right arm is in a sling. She has a ice pack for pain. Active bowel sounds. Side rails up X 2. Bed in low position. Call light within reach. Will continue to monitor this pt thru shift.
[2021-01-04 20:08] VITALS: BP 137/74
--- NOTE | 2021-01-05 08:50 | NUR ---
PT LYING IN BED. VOIDING PER BEDPAN. DENIES PAIN RESTING COMFORTABLY. NO NEEDS VOICED. CALL LIGHT WITHIN REACH. FREQUENT OBSERVATION.
[2021-01-05 09:42] VITALS: BP 129/75
--- NOTE | 2021-01-05 13:09 | NUR ---
ASSESSMENT: CM REVIEWED CHART AND MET WITH PATIENT AND HER CAREGIVER NETO GALARZA AT THE BEDSIDE. PT IS S/P HARDWARE REMOVAL FROM RIGHT SHOULDER. PT LIVES AT A [facility] PT HAS HX OF DEVELOPMENTAL DELAY AND CEREBRAL PALSEY. PT REPORTS SHE USES A WALKER FOR AMBULATION AND HAS A RAMP TO ENTER THE HOME. PT HAS NO STEPS ONCE INSIDE. PT HAS A CAREGIVER AVAILABLE THERE 04/02. PT IS WITH NETO CURRENTLY WHO WILL BE THE CARGIVER PROVIDING HER TRANSPORTATION AT DISCHARGE. THEY ARE REQUESTING ASSISTANCE IN ARRANGING OUTPATIENT THERAPY. PT HAS HAD HH IN THE PAST BUT HAD TO BE DISCONTINUED SHE GOES TO A DAY PROGRAM WITH FRIENDS FROM 8-1430 AND THE HOME HEALTH SAID IF SHE ATTENDED THAT THEN SHE IS NOT CONSIDERED HOME BOUND AND HAD TO DISCHARGE HER. NETO IS REQUESTING OUTPATIENT THERAPY THEY CAN TAKE HER TO THERAPY PREFERRABLY IN THE AM HOURS AND THEN TAKE HER TO HER DAY PROGRAM. CM REACHED OUT TO [facility] BUT THEY DO NOT HAVE AVAILABILITY. CM REACHED OUT TO OUTPATIENT THERAPY HERE AT [facility] [phone] TO CHECK AVAILABILITY.
--- NOTE | 2021-01-05 14:00 | NUR ---
RN went over all discharge teaching with Cha TONG and pateints caregiver, IV out, will dicharge back to [facility].
== END 2021-01-05 14:50 | disposition home or self-care (01) ==
LOC: OR 06:11 → TBA 06:11 → OR 09:17 → 4S 11:41 → OR 13:12 → 4S 01-05 14:50
PROVIDERS: ADMIT Orthopaedic Surgery Sports Medicine; ATTEND Orthopaedic Surgery Sports Medicine
DX: M25.611 Stiffness of right shoulder, not elsewhere classified (principal); M81.0 Age-related osteoporosis without current pathological fracture; I95.9 Hypotension, unspecified; Z47.2 Encounter for removal of internal fixation device; Z79.899 Other long term (current) drug therapy
CPT/HCPCS: 50010; 50101; 50386; 50417; 50733; 54118; 56524; 56527; 57103; 62110; 62900; 70005